=== PATIENT | female | born 2000 | race Two or more races ===

== ENCOUNTER 2021-01-27 09:55 | Emergency (ER) | payer OTHER ==
[~2021-01-27] VITALS: Ht 152.4 cm; Wt 72.9 kg
[2021-01-27] MEDS ORDERED: ACETAMINOPHEN 325 MG TABLET. PO ONE (10:45)
[2021-01-27 10:58] LABS: BILIRUBIN,URINE NEGATIVE (NEG); CLARITY,URINE CLEAR; COLOR,URINE YELLOW; NITRITE,URINE NEGATIVE (NEG); PROTEIN,URINE NEGATIVE (NEG-TRACE); UROBILINOGEN,URINE 0.2 mg/dL (0.2 mg/dL)
--- NOTE | 2021-01-27 11:13 | PHYS DOC ---
Past Medical History Past Surgical History: Other Additional Past Surgical Histo: left hip surgery Smoking Status: Never Smoker Alcohol Use: None General Adult EDM: Chief Complaint: VAGINAL BLEEDING HPI: HPI: Patient is a 20-year-old female presents to the emergency department complaining of vaginal bleeding during . Patient reports a last menstrual cycle on September 08, reports confirmation of IUP with ultrasound at [facility] a week ago. 1 para 0. Patient reports feeling low abdomen cramping last night and noticed light pink tinge on toilet paper after urination. Denies soaking feminine pads, patient reports this morning after urination and wiping noticing darker blood. Patient reports her lower abdomen cramping has been off and on between a 0 out of 10 up to an 8 out of 10 cramping that lasts a few minutes to 30 minutes in duration. Patient reports current low abdomen cramping that she rates at a 7 out of 10. Patient denies taking any medications for her symptoms. Reports surgical history of left hip surgery in 2016. States she is not taking any [id number]-[id number] or prescription medications. Denies shortness of breath, dizzy spells, syncopal episodes, shira phoretic episodes, denies nausea vomiting or diarrhea or constipation. Patient denies seeing any blood in her urine or stool. Patient denies vaginal discharge, rashes or lesions to her vaginal area, denies STI concerns. Patient denies other physical complaints or physical concerns Review of Systems: Review of Systems: 14 body systems of review of systems have been reviewed. See HPI for pertinent positives and negative responses, otherwise all other systems are negative, nonpertinent or noncontributory. Constitutional: Negative except as outlined in HPI above. Skin: Negative except as outlined in HPI above. Eyes: Negative except as outlined in HPI above. HENT: Negative except as outlined in HPI above. Respiratory: Negative except as outlined in HPI above. Cardiovascular: Negative except as outlined in HPI above. GI: Negative except as outlined in HPI above. : Negative except as outlined in HPI above. Musculoskeletal: Negative except as outlined in HPI above. Integument: Negative except as outlined in HPI above. Neurologic: Negative except as outlined in HPI above. Endocrine: Negative except as outlined in HPI above. Lymphatic: Negative except as outlined in HPI above. Psychiatric: Negative except as outlined in HPI above. Heart Score: C/O Chest Pain: No Risk Factors: Risk Factors: DM, Current or recent (<one month) smoker, HTN, HLP, family history of CAD, obesity. Risk Scores: Score 0 - 3: 2.5% MACE over next 6 weeks - Discharge Home Score 4 - 6: 20.3% MACE over next 6 weeks - Admit for Clinical Observation Score 7 - 10: 72.7% MACE over next 6 weeks - Early Invasive Strategies Current Medications: Current Medications Medications (Trade) Dose Ordered Sig/Renato Start Time Stop Time Status Last Admin Dose Admin Acetaminophen (Tylenol) 650 mg 1X ONCE 01/27/21 10:45 01/27/21 10:46 DC Allergies: Allergies: Allergies Coded Allergies Type Severity Reaction Last Updated Verified No Known Drug Allergies 01/27/21 No Physical Exam: PE: Constitutional: Well developed, well nourished, no acute distress, non-toxic appearance. 20-year-old female in no apparent distress. HENT: Normocephalic, atraumatic. Eyes: Conjunctiva normal, no discharge. Neck: Normal range of motion. Cardiovascular: Distal cap refill less than 2 seconds, no cyanosis appreciated. Lungs & Thorax: Patient is in no respiratory distress, no adventitious lung sounds appreciated. Abdomen: Bowel sounds normal, soft, no tenderness, no masses, no pulsatile masses. No bruising or skin discoloration of the abdomen. Skin: Warm, dry, no erythema, no rash. Back: No tenderness, no CVA tenderness. Extremities: No tenderness, no cyanosis, no clubbing, ROM intact, no edema. Neurologic: Alert and oriented X 3, normal motor function, normal sensory function, no focal deficits noted. Psychologic: Affect normal, judgement normal, mood normal. : Pelvic examination with female ED nurse at bedside for academic guidance specialist, no lesions or rashes or abnormalities of the external vaginal structures, no blood noted at the vaginal opening, speculum exam reveals scant dark red blood in vaginal vault, the cervical os is closed, vaginal monterroso and adjacent structures pink, no erythema, no discharge appreciated, no cervical motion tenderness or adnexal pain with bimanual exam. Current Patient Data: Labs: Laboratory Tests Test 01/27/21 10:39 POC Urine HCG, Qualitative Hcg positive (Negative) Vital Signs: Vital Signs Date Time Temp Pulse Resp B/P (MAP) Pulse Ox O2 Delivery O2 Flow Rate FiO2 01/27/21 10:30 99.3 66 22 121/60 (80) 100 Room Air 99.3 EKG: EKG: [] Radiology/Procedures: Radiology/Procedures: PATIENT: MORGAN JOHNSON ACCOUNT: [id number] : 2000 LOCATION: ER AGE: 20 SEX: F EXAM STATUS: REG ER ORD. PHYSICIAN: LAWSON SANDOVAL APRN REASON: , vaginal bleeding, EDC September 11, 2021 PROCEDURE: OB <14 WKS W/TV First trimester ultrasound less than 14 weeks: Clinical indications: . Vaginal bleeding. Findings: Transvaginal study: Number of fetuses: Single. Average crown-rump length: 1.22 cm which corresponds to an approximate gestational age of 7 weeks and 3 days +/- 5 days. EDC is September 12, 2021 Sac shape and amniotic fluid volume: Normal. heart rate: 0 beats per minute consistent with demise. Placenta location: Indeterminate due to the early stage of gestation. Cervical length: Greater than 3.0 cm. Extrachorionic hemorrhage: None. Uterus: No uterine fibroids are seen. Maternal ovaries: Right ovary: 3.5 cm x 2.5 cm x 2.2 cm. Normal. Color-flow Doppler: Present Left ovary: 2.9 cm x 1.8 cm x 3.6 cm. Normal. Color-flow Doppler: Present. Adnexa: no adnexal masses are seen. Free fluid: None. Impression: Sonographic findings are consistent with demise of a single IUP with gestational age of 7 weeks 3 days. Electronically signed by: Олег Finch MD (01/27/2021 1:32 PM) [id number] Course & Med Decision Making: Course & Med Decision Making Pertinent Labs and Imaging studies reviewed. (See chart for details) 20-year-old female, vital signs reviewed, resents emergency department concerning vaginal bleeding with . Physical examination concerning for threatened miscarriage, will order CBC, BMP, ABO on type, beta hCG quant, pelvic ultrasound. Urinalysis assay, test. Patient's pelvic ultrasound interpreted by house radiologist shows demise. Discussed findings with patient, strict follow-up with OB soon, return to ER precautions or concerns. Patient gave verbal understanding of ultrasound results, OB follow-up this week. Is amenable to ED discharge planning. Discussed with the patient all findings and diagnostic testing as well as the need to follow-up with their primary care provider for further evaluation and treatment or return to the ED if any new or worsening symptoms. Strict return precautions were also discussed at length, the patient voiced understanding and agreement with the discharge planning. The patient was nontoxic in appearance, in no apparent distress, and hemodynamically stable at the time of disposition. Dragon Disclaimer: Dragon Disclaimer: This electronic medical record was generated, in whole or in part, using a voice recognition dictation system. Departure Departure Impression: Primary Impression: Incomplete miscarriage Disposition: HOME / SELF CARE / HOMELESS Condition: GOOD Referrals: ORAL SERRANO MD (PCP) Patient Instructions: Incomplete Miscarriage Additional Instructions: You were seen in the emergency department today for vaginal bleeding during . A sonogram study was done today, as we discussed unfortunately there has been a demise. There was no heartbeat noted today. This is considered an incomplete miscarriage. As we discussed, you may experience abdominal cramping with period type bleeding to pass the tissues. As we discussed at length, there are times when this does not happen completely, therefore you should make an appointment to see your CONTRACTS ADMINISTRATOR clinic at the [facility] this week, this is a must. They may wish to k now your hCG level today, this was 2983. Your blood type is O+. Your urine was not infected. Return to the emergency department for worsening symptoms or other concerns. Thank you for visiting our Emergency Department. It was a pleasure taking care of you today in the emergency department and we appreciate you trusting us with your care. If any additional problems come up don't hesitate to return to visit us. Please follow up with your primary care provider so they can plan additional care if needed and know about the problem that you had. If symptoms worsen come back to the Emergency Department. Any concerning symptoms that start such as chest pain, shortness of air, weakness or numbness on one side of the body, running high fevers or any other concerning symptoms return to the ER. EMERGENCY DEPARTMENT GENERAL DISCHARGE INSTRUCTIONS Thank you for coming to [facility] Emergency Department (ED) today and trusting us with you care. We trust that you had a positive experience in our Emergency Department. If you wish to speak to the department management, you may call the Director at [phone]. YOUR FOLLOW UP INSTRUCTIONS ARE FOLLOWS: 1. Do you have a private Doctor? If you do not have a private doctor, please ask for a resource list of physicians or clinics that may be able to assist you with follow up care. 2. The Emergency Physicain has interpreted your x-rays. The X-Ray specialist will also review them. If there is a change in the findings, you will be notified in 48 hours when at all possible. 3. A lab test or culture has been done, your results will be reviewed and you will be notified if you need a change in treatment. ADDITIONAL INSTRUCTIONS AND INFORMATION: 1. Your care today has been supervised by a physician who is specially trained in emergency care. Many problems require more than one evaluation for a complete diagnosis and treatment. We recommend that you schedule your follow up appointment as recommended to ensure complete treatment of you illness or injury. If you are unable to obtain follow up care and continue to have a problem, or if your condition worsens, we recommend that you return to the ED. 2. We are not able to safely determine your condition over the phone nor are we able to give sound medical advice over the phone. For these safety reasons, if you call for medical advice we will ask you to come to the ED for further evaluation. 3. If you have any questions regarding these discharge instructions please call the ED at [phone]. SAFETY INFORMATION: In the interest of safety, wellness, and injury prevention; we encourage you to wear your sealbelt, if you smoke; quite smoking, and we encourage family to use a protective helmet for bicycling and other sporting events that present an increased risk for head injury. IF YOUR SYMPTOMS WORSEN OR NEW SYMPTOMS DEVELOP, OR YOU HAVE CONCERNS ABOUT YOUR CONDITION; OR IF YOUR CONDITION WORSENS WHILE YOU ARE WAITING FOR YOUR FOLLOW UP APPOINTMENT; EITHER CONTACT YOUR PRIMARY CARE DOCTOR, THE PHYSICIAN WHOSE NAME AND NUMBER YOU WERE GIVEN, OR RETURN TO THE ED IMMEDIATELY. LAWSON SANDOVAL APRN Jan 27, 2021 11:13
[2021-01-27 11:15] LABS: BACTERIA,URINE 0 /HPF (0-FEW); WBC,URINE 0 /HPF (0-4)
[2021-01-27 11:54] LABS: BASO % 1 % (0-3); EOS # 0.3 x10^3/uL (0.0-0.7); EOS % 3 % (0-3); HEMATOCRIT 41.4 % (36.0-47.0); HEMOGLOBIN 14.3 g/dL (12.0-15.5); LYMPH # 2.6 x10^3/uL (1.0-4.8); LYMPH % 27 % (24-48); MEAN CORPUSCULAR HEMOGLOBIN 31 pg (25-35); MEAN CORPUSCULAR HGB CONC 35 g/dL (31-37); MEAN CORPUSCULAR VOLUME 89 fL (79-100); MONO # 0.7 x10^3/uL (0.0-1.1); MONO % 7 % (0-9); NEUT % 62 % (31-73); PLATELET COUNT 247 x10^3/uL (140-400); RED BLOOD COUNT 4.64 x10^6/uL (3.50-5.40); RED CELL DISTRIBUTION WIDTH 12.6 % (11.5-14.5); WHITE BLOOD COUNT 9.7 x10^3/uL (4.0-11.0)
[2021-01-27 12:10] LABS: CALCIUM 8.6 mg/dL (8.5-10.1); CREATININE 0.6 mg/dL (0.6-1.0); POTASSIUM 3.7 mmol/L (3.5-5.1)
--- NOTE | 2021-01-27 13:34 | RAD ---
First trimester ultrasound less than 14 weeks: Clinical indications: . Vaginal bleeding. Findings: Transvaginal study: Number of fetuses: Single. Average crown-rump length: 1.22 cm which corresponds to an approximate gestational age of 7 weeks and 3 days +/- 5 days. EDC is September 12, 2021 Sac shape and amniotic fluid volume: Normal. heart rate: 0 beats per minute consistent with demise. Placenta location: Indeterminate due to the early stage of gestation. Cervical length: Greater than 3.0 cm. Extrachorionic hemorrhage: None. Uterus: No uterine fibroids are seen. Maternal ovaries: Right ovary: 3.5 cm x 2.5 cm x 2.2 cm. Normal. Color-flow Doppler: Present Left ovary: 2.9 cm x 1.8 cm x 3.6 cm. Normal. Color-flow Doppler: Present. Adnexa: no adnexal masses are seen. Free fluid: None. Impression: Sonographic findings are consistent with demise of a single IUP with gestational ag e of 7 weeks 3 days. Electronically signed by: Олег Finch MD (01/27/2021 1:32 PM) [id number]
[2021-01-27 14:07] VITALS: BP 174/92
[2021-01-28 18:13] LABS: GC PROBE Negative (Negative)
== END 2021-01-27 14:07 | disposition home or self-care (01) ==
LOC: ER 09:55
DX: O03.4 Incomplete spontaneous abortion without complication (principal); Z3A.01 Less than 8 weeks gestation of pregnancy
CPT/HCPCS: 36415; 76801; 76817; 80048; 81001; 81025; 84702; 85025; 86900; 86901; 87491; 87591; 99285; Q0111

== ENCOUNTER → 2021-03-28 | Outpatient (CLI) | payer OTHER ==
--- NOTE | 2021-03-28 15:32 | CARD ---
MR#: [id number] Date of Study: 03/28/2021 Ordering Physician: ORAL ABREU, Referring Physician: ORAL ABREU, Tech: Berta Davis [facility] APPROVED REPORT EXAM: Two-dimensional and M-mode echocardiogram with Doppler and color Doppler. Other Information Quality : AverageHR: 81bpm Rhythm : NSR INDICATION 2D DIMENSIONS RVDd2.5 (2.9-3.5cm)Left Atrium(2D)3.4 (1.6-4.0cm) IVSd0.9 (0.7-1.1cm)Aortic Root(2D)2.8 (2.0-3.7cm) LVDd4.7 (3.9-5.9cm)LVOT Diameter2.1 (1.8-2.4cm) PWd1.1 (0.7-1.1cm)LVDs2.4 (2.5-4.0cm) FS (%) 50.0 %SV83.7 ml Aortic Valve AoV Peak Ian.165.7cm/sAoV VTI34.0cm AO Peak GR.11.0mmHgLVOT Peak Ian.139.8cm/s AO Mean GR.5mmHgAVA (VMAX)2.90cm2 Mitral Valve MV E Chavfzgl000.6cm/sMV DECEL MDNY280xm MV A Ladmlqee78.6cm/sE/A Ratio1.4 LEFT VENTRICLE The left ventricle is normal size. There is normal left ventricular wall thickness. The left ventricu lar systolic function is normal and the ejection fraction is within normal range. Ejection fraction of 55 to 60%. There is normal LV segmental wall motion. The left ventricular diastolic function and filling is normal for age. RIGHT VENTRICLE The right ventricle is normal size. There is normal right ventricular wall thickness. The right ventr icular systolic function is normal. ATRIA The left atrium size is normal. The right atrium size is normal. The interatrial septum is intact wit h no evidence for an atrial septal defect or patent foramen ovale as noted on 2-D or Doppler imaging. AORTIC VALVE The aortic valve is normal in structure and function. Doppler and Color Flow revealed no significant aortic regurgitation. There is no significant aortic valvular stenosis. MITRAL VALVE The mitral valve is normal in structure and function. There is no evidence of mitral valve prolapse. There is no mitral valve stenosis. Doppler and Color Flow revealed no mitral valve regurgitation note d. TRICUSPID VALVE The tricuspid valve is normal in structure and function. Doppler and Color Flow revealed no tricuspid valve regurgitation noted. PULMONIC VALVE The pulmonary valve is normal in structure and function. Doppler and Color Flow revealed mild pulmoni c valvular regurgitation. GREAT VESSELS The aortic root is normal in size. The ascending aorta is normal in size. The IVC is normal in size a nd collapses >50% with inspiration. PERICARDIAL EFFUSION There is no evidence of significant pericardial effusion. Critical Notification Critical Value: No <Conclusion> The left ventricle is normal size. The left ventricular systolic function is normal and the ejection fraction is within normal range. Ejection fraction of 55 to 60%. There is normal LV segmental wall motion. Doppler and Color Flow revealed no significant aortic regurgitation. There is no significant aortic valvular stenosis. Doppler and Color Flow revealed no mitral valve regurgitation noted. Doppler and Color Flow revealed no tricuspid valve regurgitation noted. Signed by : Asim Palumbo MD Electronically Approved : 03/28/2021 15:32:31
== END ==
LOC: ECHO 09:45
PROVIDERS: ATTEND Family Medicine
DX: I37.1 Nonrheumatic pulmonary valve insufficiency (principal); R07.9 Chest pain, unspecified
CPT/HCPCS: 93306